=== PATIENT | male | born 1965 ===

== ENCOUNTER 2017-07-20 11:08 | Day surgery (SDC) | payer MEDICARE, OTHER ==
[2017-07-19 07:12] VITALS: BMI 32.5
[2017-07-20 11:54] VITALS: O2SAT 96
[2017-07-20] MEDS ORDERED: Bupivacaine 0.5%/Epi 1:200,000 (10 ML SOL) ONE (14:04)
[2017-07-20] MEDS ORDERED: ceFAZolin IV 1 gm in Dextrose 0 GM/0 ML BAG IVPB ONE (14:04)
[2017-07-20] MEDS ORDERED: Lidocaine 1% Inj (20ml) ONE (14:05)
[2017-07-20] MEDS ORDERED: Oxycodone/Acetaminophen 5/325 mg Tab PO PRN (14:32)
--- NOTE | 2017-07-20 14:36 | PCM.SURG1 ---
Surgeon's Initial Post Op Note - Surgeon's Notes Surgeon: Yeny Detailer: Keshav PGY1 Type of Anesthesia: Local Pre-Operative Diagnosis: Skin lesion of back Operative Findings: see operative report Post-Operative Diagnosis: Skin lesion of back Operation Performed: Excision of back skin lesion Specimen/Specimens Removed: Skin lesion of back Estimated Blood Loss: EBL {In ML}: 5 Blood Products Given: N/A Drains Used: No Drains Post-Op Condition: Good Date of Surgery/Procedure: 07/20/17 Time of Surgery/Procedure: 14:35
[2017-07-20 15:03] VITALS: RESP 16; TEMP 98
[2017-07-20 15:06] VITALS: BP 111/67; PULSE 69
--- NOTE | 2017-07-21 02:30 | OP ---
DATE OF OPERATION: 07/20/2017 PREOPERATIVE DIAGNOSIS: Skin lesion of mid back approximately 2 x 2 cm size. POSTOPERATIVE DIAGNOSIS: Skin lesion of mid back approximately 2 x 2 cm size. PROCEDURE DONE: Excision of skin lesion of mid back, 2 x 2 cm size. SURGEON: Gabriel Saini MD PROGRAMMER ANALYST [employer]: Tito, PGY1 resident. TYPE OF ANESTHESIA: Local anesthesia. ESTIMATED BLOOD LOSS: Around 5 mL. DRAIN: None. PATHOLOGY: The skin lesion was sent for the pathology. COMPLICATIONS: None. INTRAOPERATIVE FINDING: The patient has a pedunculated skin lesion of mid back, 2 x 2 cm size. INTRAOPERATIVE STEPS: This is a 51-year-old male who was diagnosed with lesion of the mid back and the patient was consented for excision of the skin lesion, brought to the OR, placed in the right lateral position. The mid back was prepped and draped. Local anesthesia was injected and the elliptical very small incision was made and the pedicle of the skin lesion was excised and the skin lesion was sent off the table for the pathology. Wound was closed in one layer with a 3-0 Nylon interrupted suture and dry sterile dressing was applied. The patient tolerated the procedure well. Count of instrument was correct. There was no apparent complications. Gabriel Saini MD MTDJade
== END 2017-07-20 15:01 | disposition home or self-care (01) ==
LOC: C.SDS 11:08
PROVIDERS: ATTEND Surgery Surgical Critical Care
DX: D23.5 Other benign neoplasm of skin of trunk (principal)